=== PATIENT | female | born 1965 | race Caucasian/White ===

== ENCOUNTER 2018-03-20 19:13 | Emergency (ER) | payer BC ==
--- NOTE | 2018-03-20 20:08 | UC ---
Abdominal Pain Female HPI - HPI Summary HPI Summary: C/O ongoing upper abdominal pain since diverticulitis diagnosis in January, and even before then. Ongoing sweats and chills. Has some low back pain. Has sharp stabbing pain for a few seconds 6-8 times a day in the lower abdomen and and into the left groin. - History of Current Complaint Chief Complaint: UCAbdominalPain Stated Complaint: URINARY,BACK PAIN,STOMACH CRAMPS Time Seen by Provider: 03/20/18 19:28 Hx Obtained From: Patient ?: No Onset/Duration: Gradual Onset, Lasting Weeks - multiple, Still Present Timing: Constant - aching pain Severity Initially: Mild Severity Currently: Moderate Pain Intensity: 4 Location: Discrete At: LLQ - but also some diffuse pain. Radiates: Yes Radiates to: Inguinal - on the left side. Character: Dull - constant pain, Sharp - cramping pain intermittantly Aggravating Factor(s): Nothing Alleviating Factor(s): Nothing Associated Signs and Symptoms: Positive: Diaphoresis, Back Pain, Diarrhea. Negative: Blood in Stool Allergies/Adverse Reactions: Allergies Allergy/AdvReac Type Severity Reaction Status Date / Time No Known Allergies Allergy Verified 03/20/18 19:42 Home Medications: Home Medications Caffeine 200 - 400 mg PO QAM 03/20/18 [History Confirmed 03/20/18] D-Methorphan/PE/Acetaminophen [Vicks Dayquil Liquicaps] 1 - 2 cap PO Q6H PRN [History Confirmed 03/20/18] Jefferson-3 Fatty Acids (Nf) [Fish Oil (NF)] 1,000 mg PO DAILY 03/20/18 [History Confirmed 03/20/18] Phenazopyridine TAB* [Pyridium 100 mg TAB*] 100 - 200 mg PO TID PRN 03/20/18 [ History Confirmed 03/20/18] PMH/Surg Hx/FS Hx/Imm Hx GI/ History: Gastroesophageal Reflux, Diverticulitis - Surgical History Surgical History: Yes Surgery Procedure, Year, and Place: C Section - Family History Known Family History: Negative: Diabetes - Social History Occupation: Employed Full-time Lives: With Family Alcohol Use: Rare Substance Use Type: None Smoking Status (MU): Never Smoked Tobacco - Immunization History Most Recent Influenza Vaccination: fall 2014 Review of Systems Constitutional: Fever, Chills Gastrointestinal: Abdominal Pain Is Patient Immunocompromised?: No All Other Systems Reviewed And Are Negative: Yes Physical Exam Triage Information Reviewed: Yes Appearance: Well-Nourished, Ill-Appearing, Pain Distress Vital Signs: Initial Vital Signs Temp 98.6 F 03/20/18 19:37 Pulse 88 03/20/18 19:37 Resp 16 03/20/18 19:37 BP 126/72 03/20/18 19:37 Pulse Ox 97 03/20/18 19:37 Vital Signs Reviewed: Yes Eyes: Positive: Conjunctiva Clear ENT: Positive: Pharynx normal, TMs normal Neck exam: Normal Respiratory Exam: Normal Cardiovascular Exam: Normal Abdomen Description: Negative: Nontender - Left lower quadrant, CVA Tenderness ( R), CVA Tenderness (L), Peritoneal Signs Bowel Sounds: Positive: Present Musculoskeletal Exam: Normal Neurological Exam: Normal Psychological Exam: Normal Skin Exam: Normal Diagnostics - Radiology No standard instances Radiology Interpretation Completed By: Radiologist Summary of Radiographic Findings: Diverticulitis Abd Pain Female Course/Dx - Differential Dx/Diagnosis Differential Diagnosis: Appendicitis, Diverticulitis, Pancreatitis, Renal Colic , Urinary Tract Infection Provider Diagnoses: Chronic diverticulitis Discharge - Sign-Out/Discharge Documenting (check all that apply): Patient Departure All imaging exams completed and their final reports reviewed: Yes - Discharge Plan Condition: Stable Disposition: HOME Prescriptions: Ciprofloxacin HCl [Cipro 500 MG TAB] 500 mg PO BID #30 tab metroNIDAZOLE [Flagyl 500 MG TAB] 500 mg PO TID #45 tab Patient Education Materials: Diverticulitis (ED), Ciprofloxacin (By mouth), Metronidazole (By mouth) Referrals: Miranda Zimmer MD [Primary Care Provider] - - Billing Disposition and Condition Condition: STABLE Disposition: Home
[2018-03-20 21:43] VITALS: BP 130/69
--- NOTE | 2018-03-20 21:44 | RAD ---
EXAM: CT Abdomen and Pelvis Without Intravenous Contrast EXAM DATE/TIME: 03/20/2018 8:33 PM CLINICAL HISTORY: 52 years old, female; Pain; Abdominal pain; Generalized; Patient HX: Recent dx of diverticulitis and uti at [facility] 02.13.18. CT a/p with contrast done then; Additional info: Left sided abdominal pain, ? stone with hydronephr TECHNIQUE: Axial computed tomography images of the abdomen and pelvis without intravenous contrast. All CT scans at this facility use at least one of these dose optimization techniques: automated exposure control; mA and/or kV adjustment per patient size (includes targeted exams where dose is matched to clinical indication); or iterative reconstruction. Coronal and sagittal reformatted images were created and reviewed. COMPARISON: No relevant prior studies available. FINDINGS: Lower thorax: No acute findings. ABDOMEN: Liver: Normal. No mass. Gallbladder and bile ducts: Normal. No calcified stones. No ductal dilation. Pancreas: Normal. No ductal dilation. Spleen: Normal. No splenomegaly. Adrenals: Normal. No mass. Kidneys and ureters: Normal. No hydronephrosis. Stomach and bowel: Colonic diverticulosis with mid sigmoid wall thickening and surrounding induration consistent with diverticulitis. There is some thickening of the left lateral pelvic fashion and question of minimal microperforation into the adjacent indurated fat. Slight rectal wall thickening and slight surrounding induration. Appendix: There are no changes of appendicitis. A normal appendix is not seen. PELVIS: Bladder: Unremarkable as visualized. Reproductive: Unremarkable as visualized. ABDOMEN and PELVIS: Intraperitoneal space: Normal. No free air. No significant fluid collection. Bones/joints: Facet arthropathy of the lumbar spine with interspace narrowing and mild anterolisthesis of L4-L5. Soft tissues: See Stomach And Bowel Finding. Vasculature: Normal. No abdominal aortic aneurysm. Lymph nodes: Normal. No enlarged lymph nodes. IMPRESSION: 1. Colonic diverticulosis with mid sigmoid diverticulitis. There is surrounding induration and thickening of adjacent fascial planes and question of minimal microperforation into the adjacent indurated fat. 2. Rectal wall thickening with surrounding induration which may be a reflection of nonspecific distal colitis. 3. Although the left ureter extends through indurated left pelvic retroperitoneum, no renal or ureteral calculi are evident and there is no evidence of obstructive uropathy. To contact [facility] with a general question: [facility] - [phone] For direct physician to physician contact: Physician Hotline - [phone] [facility] (ad Facility ID #[id number])
[2018-03-20] MEDS ORDERED: metroNIDAZOLE TAB* 250 MG PO ONE (21:49)
[2018-03-20] MEDS ORDERED: Ciprofloxacin TAB* 500 MG PO ONE (21:49)
--- NOTE | 2018-03-23 07:17 | UC ---
- Progress Note Progress Note: urine culture - no growth continue abx for diverticulitis no change Ljj Discharge - Sign-Out/Discharge Documenting (check all that apply): Post-Discharge Follow Up All imaging exams completed and their final reports reviewed: Yes - Discharge Plan Condition: Stable Disposition: HOME Prescriptions: Ciprofloxacin HCl [Cipro 500 MG TAB] 500 mg PO BID #30 tab metroNIDAZOLE [Flagyl 500 MG TAB] 500 mg PO TID #45 tab Patient Education Materials: Ciprofloxacin (By mouth), Metronidazole (By mouth) , Diverticulitis (ED) Referrals: Miranda Zimmer MD [Primary Care Provider] - - Billing Disposition and Condition Condition: STABLE Disposition: Home
== END 2018-03-20 22:06 | disposition home or self-care (01) ==
LOC: UCCORT 19:13
DX: K57.92 Diverticulitis of intestine, part unspecified, without perforation or abscess without bleeding (principal)
CPT/HCPCS: 74176; 87077; 87086; 99212; A9270-GY; G0463